=== PATIENT | female | born 1930 | race Caucasian/White ===

== ENCOUNTER 2018-04-01 13:57 | Emergency (ER) | payer OTHER ==
[2018-04-01 14:03] VITALS: BP 118/65; TEMP 97.9; BMI 23.5
--- NOTE | 2018-04-01 15:30 | ED.PDOC ---
General ED Provider: Dr. SAMIA MARTIN Chief Complaint: Extremity Pain/Injury Stated Complaint: C/O Left leg , knee pain. Diffiuclty walking. Pt states left knee has been hurting for a long time but has been worse for the last 6 months. Pt is new at [facility] and was sent out for evaluation of increased difficulty in walking and left anterior knee pain.Family states it seems that her condition has changed and worsened. No recent trauma. hx prev BL--TKA Time Seen by Physician: 15:10 Mode of Arrival: Wheelchair Information Source: Patient, Family Exam Limitations: No limitations Nursing and Triage Documentation Reviewed and Agree: Yes Does patient meet sepsis criteria?: No System Inflammatory Response Syndrome: Not Applicable Sepsis Protocol: For patient's 13 years and over: Temp is 96.8 and below OR 101 and greater Pulse >90 BPM Resp >20/minute Acutely Altered Mental Status Are patient's symptoms suggestive of a new infection, such as: -Pneumonia -Skin, Soft Tissue -Endocarditis -UTI -Bone, Joint Infection -Implantable Device -Acute Abdominal Infection -Wound Infection -Meningitis -Blood Stream Catheter Infection -Unknown Musculoskeletal Complaint Exam - Knee Pain Complaint/Exam Mechanism of Injury: Reports: No known trauma Onset/Duration: changed in last week Symptoms Are: Still present Onset of Pain: Reports: Prior to arrival Initial Severity: Moderate Current Severity: Mild Location: Reports: Diffuse Character: Reports: Dull, Aching Alleviating: Reports: Rest Aggravating: Reports: Movement Associated Signs and Symptoms: Denies: Swelling, Redness, Bruising, Fever, Weakness, Numbness, Tingling Able to Bear Weight: Yes Related History: Reports: Similar episode Septic Arthritis Risk Factors: Reports: None Gout Risk Factors: Reports: None Related Surgical History: Reports: Right Knee, Left Knee Knee Findings: Present: Tenderness Tenderness: Absent: Pre-patellar, Joint, Tibial Tuberosity Cliff Test Positive: No Mariela Test Positive: No Limited Range of Motion: Absent: Active, Passive, Flexion, Extension, Patellar apprehension Differential Diagnoses: Contusion, Patellofemoral Syndrome, Strain Review of Systems - Review Of Systems Constitutional: Reports: No symptoms Eyes: Reports: No symptoms Ears, Nose, Mouth, Throat: Reports: No symptoms Respiratory: Reports: No symptoms Cardiac: Reports: No symptoms GI: Reports: No symptoms : Reports: No symptoms Musculoskeletal: Reports: No symptoms, Joint pain Skin: Reports: No symptoms Neurological: Reports: No symptoms Endocrine: Reports: No symptoms Hematologic/Lymphatic: Reports: No symptoms All Other Systems: Reviewed and Negative Past Medical History - Past Medical History Previously Healthy: Yes Endocrine: Reports: None Cardiovascular: Reports: None, Hypertension Respiratory: Reports: None Hematological: Reports: None Gastrointestinal: Reports: None Genitourinary: Reports: None, Other (oxybutynin) Neuro/Psych: Reports: None, Anxiety, Dementia Musculoskeletal: Reports: None, Arthritis, Joint Pain Cancer: Reports: None Last Menstrual Period: none - Surgical History General Surgical History: Reports: None - Family History Family History: Reports: None - Social History Smoking Status: Never smoker Hx Substance Use: No Alcohol Screening: None Physical Exam - Physical Exam Appearance: Well-appearing, No pain distress, Well-nourished Eyes: SJ, EOMI, Conjunctiva clear ENT: Ears normal, Nose normal, Oropharynx normal Respiratory: Airway patent, Breath sounds clear, Breath sounds equal, Respirations nonlabored Cardiovascular: RRR, Pulses normal, No rub, No murmur GI/: Soft, Nontender, No masses, Bowel sounds normal, No Organomegaly Musculoskeletal: Normal strength, ROM intact (no localized joint restriction, no appreciable effusion ), No edema, No calf tenderness Skin: Warm, Dry, Normal color Neurological: Sensation intact, Motor intact, Reflexes intact, Cranial nerves intact, Alert, Oriented Psychiatric: Affect appropriate, Mood appropriate Interpretation - Radiology Interpretation Radiology Interpretation By: Radiologist Radiology Results: No acute changes Exam Interpreted: Other (pelvis and knee xrays) Critical Care Note - Critical Care Note Total Time (mins): 0 Course - Course Orders, Labs, Meds: Orders Category Date Time Status KNEE, LEFT 4 VIEWS Stat RADS 04/01/18 16:08 Completed KNEE, RIGHT 4 VIEWS Stat RADS 04/01/18 16:08 Completed PELVIS & LAURA HIPS Stat RADS 04/01/18 16:08 Completed Vital Signs: Temp Pulse Resp BP Pulse Ox 04/01/18 13:57 97.9 F 60 18 118/65 99 Departure - Departure Time of Disposition: 17:40 Disposition: HOME SELF-CARE Discharge Problem: Weakness, Leg pain, Degenerative arthritis, Dementia Instructions: Arthralgia (ED), Leg Pain (ED) Condition: Fair Pt referred to PMD for follow-up: Yes (1 week) IPMP verified?: No Allergies/Adverse Reactions: Allergies Iodinated Contrast- Oral and IV Dye [Iodinated Contrast Media - IV Dye] Adverse Reaction (Verified 07/27/13 19:03) Home Medications: Ambulatory Orders Fluticasone/Salmeterol [Advair 100-50 Diskus] 1 puff IH Q12H PRN 05/04/13 Metoprolol Succinate [Toprol Xl] 25 mg PO DAILY 05/04/13 Sertraline HCl [Zoloft] 100 mg PO DAILY 05/04/13 Lisinopril/Hydrochlorothiazide [Zestoretic 20-12.5 mg Tablet] 1 each PO DAILY Alprazolam 0.25 mg PO Q8HR PRN 04/01/18 Aspirin [Aspirin EC] 81 mg PO DAILY 04/01/18 Atorvastatin Calcium 40 mg PO BEDTIME 04/01/18 Cyanocobalamin (Vitamin B-12) [Cyanocobalamin Injection] 1,000 mcg IJ MONTHLY Donepezil HCl 5 mg PO DAILY 04/01/18 Oxybutynin Chloride [Ditropan Xl] 5 mg PO DAILY 04/01/18 Tramadol HCl 50 mg PO Q8HR PRN 04/01/18 Disposition Discussed With: Patient, Family Additional Information: Explained to family no radiographic finding of acute injury or abnormalities of the prev TKA
--- NOTE | 2018-04-01 16:59 | DI ---
EXAM: Right knee, four view HISTORY: Pain COMPARISON: None FINDINGS/IMPRESSION: There is right knee arthroplasty. No fracture, dislocation, or evidence for lo osening.
--- NOTE | 2018-04-01 17:00 | DI ---
EXAM: Left knee four views HISTORY: Pain FINDINGS: No comparison imaging. The patient has underwent previous knee arthroplasty. The prosthe tic units appear intact with no evidence of dislodgement or loosening. No acute fracture is identifi ed. There is no joint effusion seen. Bones are demineralized. IMPRESSION: No fracture or dislocation.
--- NOTE | 2018-04-01 17:03 | DI ---
EXAM: Pelvis and bilateral hips HISTORY: Pain COMPARISON: None TECHNIQUE: Single view pelvis and single frog-leg view right and left hip were performed FINDINGS: Bones appear demineralized. Sacroiliac joints intact. Sacral arcuate intact. Hip joints appear normal. No fracture or dislocation. Degenerative change in the spine. Surgical changes in th e pelvis. IMPRESSION: No fracture or dislocation.
== END 2018-04-01 18:04 | disposition home or self-care (01) ==
LOC: ED 13:57
DX: M79.605 Pain in left leg (principal); M25.562 Pain in left knee; R53.1 Weakness; F03.90 Unspecified dementia, unspecified severity, without behavioral disturbance, psychotic disturbance, mood disturbance, and anxiety; M19.90 Unspecified osteoarthritis, unspecified site
CPT/HCPCS: 99282

== ENCOUNTER 2018-05-23 15:20 | Inpatient (IN) ==
[2018-05-23] MEDS ORDERED: SODIUM CHLORIDE 1,000 ML IV STA (15:35)
--- NOTE | 2018-05-23 16:53 | CT ---
EXAM: CT of the chest without contrast History: Cough. Comparison: Chest radiograph 07/19/2013, CT abdomen pelvis 05/23/2018 Technique: Multiplanar CT images through the chest were obtained without the administration of IV co ntrast Findings: Heart size is upper limits of normal. Coronary calcifications. Trace anterior pericardia l effusion. No thoracic aortic aneurysm. No axillary adenopathy. There is subsegmental atelectasis within the lingula. No consolidated pneumonia. No pleural fluid and no pneumothorax. No lung barbara s or lung nodules. For details in the upper abdomen, please see dedicated CT abdomen pelvis done on the same day. No ac pacheco osseous abnormalities. Degenerative changes of the spine. A few subacute anterior right rib frac tures with callous formation. Impression: 1. Plate-like atelectasis within the lingula but no consolidated pneumonia. 2. Coronary artery disease
--- NOTE | 2018-05-23 17:00 | CT ---
EXAM: CT ABDOMEN AND PELVIS HISTORY: Abdominal pain, nausea and vomiting TECHNIQUE: CT abdomen and pelvis without intravenous contrast. Images were reconstructed using 3 mm section thickness. Reformations were prepared. COMPARISON: None FINDINGS: Diagnostic limitations exist without including contrast enhanced images. There is a 1.5 cm low atten uation lesion of the inferior right hepatic lobe which could represent a cyst although is indetermina te. Pancreas is within normal limits. No definite gallbladder is seen. Mild ectasia of the common b ile duct without gross evidence of choledocholithiasis. No definite pancreatic inflammation or mass. Adrenal glands are within normal limits. Kidneys and ureters are unremarkable. There is mild to m oderate atherosclerotic disease. Stomach appears grossly unremarkable. An appendix, if present is not seen. There may be circumferen tial wall thickening of the lower cecum. Moderate amount retained fecal material within the rectal v carolyn distending the rectum to about 6.6 cm. The lowermost rectum is nondistended and not adequately e valuated on this exam, regional mass or stricture not excluded. Bowel gas pattern is nonobstructive. Urinary bladder is unremarkable. No uterus is seen. There is no ascites. Postop changes of the ventral abdominal wall without herniation. Bones reveal generalized deminerali zation and moderately severe degenerative changes of the spine with scoliosis. No pneumoperitoneum i s seen. See also same day CT thorax report. IMPRESSION: 1. There may be circumferential wall thickening of the lower cecum. Neoplasia cannot be excluded. 2. Moderate amount retained fecal material within the rectal vault distending the rectum to about 6. 6 cm. Early fecal impaction of the rectum should be considered. The lowermost rectum is nondistended and not adequately evaluated on this exam, regional mass or stricture not excluded. Bowel gas patter n is nonobstructive.
--- NOTE | 2018-05-23 17:31 | ED.PDOC ---
General ED Provider: Dr. MIGUEL LAZARO Chief Complaint: Nausea/Vomiting Stated Complaint: shortness of breath nausea , vomiting Time Seen by Physician: 15:30 Mode of Arrival: Walk-In Information Source: EMT Exam Limitations: No limitations Primary Care Provider: ISABELL DAO Nursing and Triage Documentation Reviewed and Agree: Yes Does patient meet sepsis criteria?: No (seen with pt's nurse and jimi and family) System Inflammatory Response Syndrome: Not Applicable (refused oxygen ) Sepsis Protocol: For patient's 13 years and over: Temp is 96.8 and below OR 101 and greater Pulse >90 BPM Resp >20/minute Acutely Altered Mental Status Are patient's symptoms suggestive of a new infection, such as: -Pneumonia -Skin, Soft Tissue -Endocarditis -UTI -Bone, Joint Infection -Implantable Device -Acute Abdominal Infection -Wound Infection -Meningitis -Blood Stream Catheter Infection -Unknown Respiratory Complaint Exam - Shortness of Air Complaint/Exam Symptoms Are: Still present Timing: Intermittent Initial Severity: Moderate Current Severity: Mild Character: Reports: Dyspnea at rest Aggravating: Reports: Recumbent position Alleviating: Reports: None Associated Signs and Symptoms: Reports: Cough. Denies: Wheezing, Chest pain with cough, Chest pain, Fever, Chills, Diaphoresis, Nasal congestion, Dizziness , Calf pain, Calf swelling, Edema, Rapid breathing, Labored breathing, Decreased intake History of Healthcare-Acquired Pneumonia: No Pulmonary Embolism Risk Factors: Reports: Bedrest Tuberculosis Risk Factors: Reports: None Home Oxygen Use: No Recent Stress Test: No Recent Echo/LV Function: No Respiratory Distress: None Stridor Present: No Tracheal Deviation: No Subcutaneous Emphysema: No Accessory Muscle Use: No Retractions: Not Present Diminished Breath Sounds: No Prolonged Expiratory Phase: No Unable to Speak Full Sentences: No Fatigue: No Leg Swelling: No Lesvia's Sign Present: No Grunting Respirations: No Kussmaul Respirations: No Differential Diagnoses: Pneumonia Review of Systems - Review Of Systems Constitutional: Reports: Malaise, Weakness Eyes: Reports: No symptoms Ears, Nose, Mouth, Throat: Reports: No symptoms Respiratory: Reports: Cough, Short of air Cardiac: Reports: No symptoms GI: Reports: Abdominal pain, Nausea, Vomiting : Reports: No symptoms Musculoskeletal: Reports: No symptoms Skin: Reports: No symptoms Neurological: Reports: No symptoms Endocrine: Reports: No symptoms Hematologic/Lymphatic: Reports: No symptoms All Other Systems: Reviewed and Negative Past Medical History - Past Medical History Previously Healthy: Yes Endocrine: Reports: None Cardiovascular: Reports: None, Hypertension Respiratory: Reports: None Hematological: Reports: None Gastrointestinal: Reports: None Genitourinary: Reports: None, Other (oxybutynin) Neuro/Psych: Reports: None, Anxiety, Dementia Musculoskeletal: Reports: None, Arthritis, Joint Pain Cancer: Reports: None Last Menstrual Period: N/A - Surgical History General Surgical History: Reports: None - Family History Family History: Reports: None - Social History Smoking Status: Never smoker Hx Substance Use: No Alcohol Screening: None - Immunizations Tetanus Shot up to Date: Yes Physical Exam - Physical Exam Appearance: Ill-appearing Ill-appearing: Moderate Pain Distress: Mild Eyes: SJ, EOMI, Conjunctiva clear ENT: Dry mucosa Respiratory: Airway patent, Breath sounds clear, Breath sounds equal, Respirations nonlabored Cardiovascular: RRR, Pulses normal, No rub, No murmur GI/: Soft, Nontender, No masses, Bowel sounds normal, No Organomegaly Musculoskeletal: Normal strength, ROM intact, No edema, No calf tenderness Skin: Warm, Dry, Normal color Neurological: Sensation intact, Motor intact, Reflexes intact, Cranial nerves intact, Alert, Oriented Psychiatric: Affect appropriate, Mood appropriate Interpretation - Radiology Interpretation Radiology Interpretation By: Radiologist Radiology Results: Positive (colonic neoplasm) Physician Notification - Case Discussed Physician Notified: pmd Time of Notification: 17:33 (admitt ) Admit To: Inpatient (telm) Critical Care Note - Critical Care Note Total Time (mins): 0 Course - Course Hematology/Chemistry: 05/23/18 16:06 05/23/18 16:06 Orders, Labs, Meds: Lab Review 05/23/18 05/23/18 05/23/18 15:34 16:06 16:06 WBC 5.21 RBC 4.42 Hgb 12.8 Hct 39.0 MCV 88.2 MCH 29.0 MCHC 32.8 RDW Coeff of Yisel 13.8 Plt Count 212 Immature Gran % (Auto) 0.4 Neut % (Auto) 70.7 Lymph % (Auto) 16.7 Vinton % (Auto) 8.3 Eos % (Auto) 3.3 Baso % (Auto) 0.6 Immature Gran # (Auto) 0.0 Neut # (Auto) 3.7 Lymph # (Auto) 0.9 Vinton # (Auto) 0.4 Eos # (Auto) 0.2 Baso # (Auto) 0.0 Puncture Site Rbrach O2 Saturation 98.0 ABG pH 7.601 H* ABG pCO2 26.6 L ABG pO2 88.0 ABG HCO3 26.2 H ABG Total CO2 27 ABG Base Excess 5 H FiO2 % 21.0 Sodium 136 Potassium 3.7 Chloride 97 L Carbon Dioxide 30 Anion Gap 12.7 BUN 23 H Creatinine 1.09 Estimated GFR (MDRD) 47.00 BUN/Creatinine Ratio 21.10 Glucose 107 Lactic Acid Calcium 9.7 Total Bilirubin 0.9 AST 29 ALT 20 Alkaline Phosphatase 121 Total Creatine Kinase 99 Troponin I 0.1040 Total Protein 6.6 Albumin 3.4 Globulin 3.2 Albumin/Globulin Ratio 1.06 Procalcitonin 05/23/18 05/23/18 16:06 16:06 WBC RBC Hgb Hct MCV MCH MCHC RDW Coeff of Yisel Plt Count Immature Gran % (Auto) Neut % (Auto) Lymph % (Auto) [place] % (Auto) Eos % (Auto) Baso % (Auto) Immature Gran # (Auto) Neut # (Auto) Lymph # (Auto) Vinton # (Auto) Eos # (Auto) Baso # (Auto) Puncture Site O2 Saturation ABG pH ABG pCO2 ABG pO2 ABG HCO3 ABG Total CO2 ABG Base Excess FiO2 % Sodium Potassium Chloride Carbon Dioxide Anion Gap BUN Creatinine Estimated GFR (MDRD) BUN/Creatinine Ratio Glucose Lactic Acid 6.2 Calcium Total Bilirubin AST ALT Alkaline Phosphatase Total Creatine Kinase Troponin I Total Protein Albumin Globulin Albumin/Globulin Ratio Procalcitonin < 0.05 Orders Category Date Time Status ABG DRAW REQUEST Stat CARDIO 05/23/18 15:34 Completed EKG-(ED ONLY) Stat CARDIO 05/23/18 15:34 Completed ED IV/MEDIPORT/POWERPORT .ONCE EMERGENCY 05/23/18 15:35 Active ABG Stat LAB 05/23/18 15:34 Completed BLOOD CULTURE Stat LAB 05/23/18 16:06 Received CBC W/ AUTO DIFF Stat LAB 05/23/18 16:06 Completed COMPREHENSIVE METABOLIC PANEL Stat LAB 05/23/18 16:06 Completed CREATINE KINASE Stat LAB 05/23/18 16:06 Completed LACTIC ACID Stat LAB 05/23/18 16:06 Completed PROCALCITONIN Stat LAB 05/23/18 16:06 Completed TROPONIN I Stat LAB 05/23/18 16:06 Completed URINALYSIS C & S IF INDICATED Stat LAB 05/23/18 15:34 Uncollected 0.9 % Sodium Chloride [Saline Flush] MEDS 05/23/18 15:35 Active 1 syr IVF PRN PRN Sodium Chloride 0.9% [Sodium Chloride] 1,000 ml MEDS 05/23/18 15:35 Active IV 125 mls/hr CT ABDOMEN/PELVIS WO CONTRAST Stat RADS 05/23/18 15:[address] CHEST W/O CONTRAST Stat RADS 05/23/18 15:35 Completed Medications Generic Name Dose Route Start Last Admin Trade Name Freq PRN Reason Stop Dose Admin Sodium Chloride 1,000 mls @ 125 mls/hr 05/23/18 15:35 05/23/18 15:30 Sodium Chloride IV 05/23/18 23:34 125 mls/hr .Q8H STA Administration Sodium Chloride 1 syr 05/23/18 15:35 Saline Flush IVF PRN PRN To flush IV Vital Signs: Temp Pulse Resp BP Pulse Ox 05/23/18 15:28 97.1 F L 58 L 18 115/48 L 93 L Departure - Departure Time of Disposition: 17:33 (family stated pt is DNR OMD NITIFIED ) Disposition: ADMITTED INPATIENT Discharge Problem: Nausea, Vomiting, Shortness of breath Condition: Good Pt referred to PMD for follow-up: Yes IPMP verified?: No Additional Instructions: Please call your Family Physician as soon as possible to schedule a follow-up appointment. Allergies/Adverse Reactions: Allergies Iodinated Contrast- Oral and IV Dye [Iodinated Contrast Media - IV Dye] Adverse Reaction (Verified 07/27/13 19:03) Home Medications: Ambulatory Orders Fluticasone/Salmeterol [Advair 100-50 Diskus] 1 puff IH Q12H PRN 05/04/13 Metoprolol Succinate [Toprol Xl] 25 mg PO DAILY 05/04/13 Sertraline HCl [Zoloft] 100 mg PO DAILY 05/04/13 Lisinopril/Hydrochlorothiazide [Zestoretic 20-12.5 mg Tablet] 1 each PO DAILY Alprazolam 0.25 mg PO Q8HR PRN 04/01/18 Aspirin [Aspirin EC] 81 mg PO DAILY 04/01/18 Atorvastatin Calcium 40 mg PO BEDTIME 04/01/18 Cyanocobalamin (Vitamin B-12) [Cyanocobalamin Injection] 1,000 mcg IJ MONTHLY Donepezil HCl 5 mg PO DAILY 04/01/18 Oxybutynin Chloride [Ditropan Xl] 5 mg PO DAILY 04/01/18 Tramadol HCl 50 mg PO Q8HR PRN 04/01/18 Disposition Discussed With: Patient
[2018-05-23] MEDS: SODIUM CHLORIDE 1,000 ML IV SCH (18:00)
[2018-05-23] MEDS ORDERED: NON-FORMULARY MEDICATION (Atorvastatin Calcium [Atorvastatin Calcium] 40 MG) PO SCH (21:00)
[2018-05-24 01:53] VITALS: BMI 25.4
[2018-05-24] MEDS ORDERED: DONEPEZIL HCL 5 MG PO SCH (09:00)
[2018-05-24] MEDS ORDERED: ZESTORETIC 20-12.5 MG TAB PO SCH (09:00)
[2018-05-24] MEDS: ROCEPHIN 1 GM in SODIUM CHLORIDE 50 ML IV SCH (09:22)
[2018-05-24] MEDS: SODIUM CHLORIDE 1,000 ML IV SCH (09:23)
[2018-05-24] MEDS: ARICEPT PO SCH (09:34)
[2018-05-24] MEDS: ASPIRIN EC PO SCH (09:35)
[2018-05-24] MEDS ORDERED: ASPIRIN CHEWABLE PO STA (09:40)
[2018-05-24] MEDS: ZESTORETIC 20-12.5 MG TAB PO ONE ×2 (09:47→09:57)
[2018-05-24] MEDS: ASPIRIN EC PO ONE ×2 (09:48→09:56)
[2018-05-24] MEDS: ARICEPT PO ONE ×2 (09:49→09:56)
[2018-05-24] MEDS ORDERED: XANAX PO PRN (10:13)
[2018-05-24] MEDS: ZOLOFT PO SCH ×2 (20:59→21:01)
[2018-05-24] MEDS ORDERED: ZOLOFT PO SCH (21:00)
[2018-05-24] MEDS ORDERED: LIPITOR PO SCH (21:00)
[2018-05-25] MEDS: SODIUM CHLORIDE 1,000 ML IV SCH ×2 (00:29→17:01)
[2018-05-25] MEDS ORDERED: ARICEPT PO ONE (09:42)
[2018-05-25] MEDS ORDERED: ASPIRIN EC PO ONE (09:45)
[2018-05-25] MEDS: ASPIRIN EC PO SCH (10:05)
[2018-05-25] MEDS: ROCEPHIN 1 GM in SODIUM CHLORIDE 50 ML IV SCH (10:05)
[2018-05-25] MEDS: ARICEPT PO SCH (10:05)
[2018-05-25] MEDS: ZOFRAN 4 MG/2 ML IVP PRN (17:00)
[2018-05-25] MEDS: ZOLOFT PO SCH (21:01)
[2018-05-26] MEDS: SODIUM CHLORIDE 1,000 ML IV SCH (06:51)
--- NOTE | 2018-05-26 06:51 | PN ---
DATE OF SERVICE: 05/23/18 - ADMIT NOTE SUBJECTIVE: 88-year-old white female was sent from the detention with complaint of being short of breath. The patient was seen and examined in the emergency room where she was noted to be confused, sleepy. All of her labs like hemoglobin was 12.0 with hematocrit of 37, WBC 5,000, normal differential, creatinine 0.9, BUN 22, potassium 3.6. EKG showed sinus rhythm, no acute changes. Glucose 87. Estimated GFR was 53 cc/min. MEDICATIONS: The patient's medications were: Advair Toprol Zoloft Zestoretic Aspirin Aricept Ditropan Tramadol Vitamin D PAST MEDICAL HISTORY: Dementia Depression Hypertension Dyslipidemia PHYSICAL EXAMINATION: V/S: Temperature 98, pulse 60, respiratory rate 14, BP 110/60. Pulse ox 98% on 2L. BMI 25. HEENT: Head normocephalic, atraumatic. Eyes: Extraocular muscles are intact. Pupils are equal, round and reactive to light and accommodation. Ears: No lesions. Nose appeared normal. Throat: No exudate or erythema. NECK: Supple. No JVD, no carotid bruit. No lymphadenopathy or thyromegaly. LUNGS: Clear to auscultation. Percussion note normal. Chest symmetrical. HEART: S1, S2, no S3. No murmurs. No cyanosis or clubbing. No ascites. Pulses: Dorsalis pedis and posterior tibial pulses +1 to +2 both sides. ABDOMEN: Soft. Nontender. Bowel sounds active. No CVA tenderness. No mass felt. EXTREMITIES: No edema. Full range of motion of all extremities, equal. NEUROLOGIC: No focal neurological deficit. Cranial nerves II through XII are grossly intact. No headache, no double vision or headache. SKIN: Not dry. Intact. Turgor - normal. LYMPHATIC: No palpable lymph nodes/no lymphedema. MUSCULOSKELETAL: Normal joints with no swelling. Muscle tone is normal. The was present in the emergency room. The sons were called. The patient was DNR and again the DNR status was confirmed. ASSESSMENT: 1. DROWSINESS 2. DECREASE IN APPETITE 3. DEHYDRATION 4. WORSENING OF DEMENTIA PLAN: 1. Continue all the medication for now. 2. IV fluids. 3. Telemetry. 4. Neurochecks. 5. The patient is DNR. TIME SPENT: More than 30 minutes. Plan and coordination of the patient's care discussed in the presence of nurse. ANIL
--- NOTE | 2018-05-26 07:08 | PN ---
DATE OF SERVICE: 05/24/18 SUBJECTIVE: 82-year-old white female hospitalized with shortness of breath. The patient also has change in mental status with drowsiness and sleepiness for the past couple of weeks. was present in the room. He wants DNR. The patient's labs are acceptable. REVIEW OF SYSTEMS: CONSTITUTIONAL: No night sweats. No fatigue, malaise, lethargy. No fever or chills. HEENT: Eyes: No visual changes. No eye pain. No eye discharge. ENT: No runny nose. No epistaxis. No sinus pain. No sore throat. No odynophagia. No congestion. RESPIRATORY: No cough, no congestion. No hemoptysis. No shortness of breath. CARDIOVASCULAR: No angina symptoms. No CHF symptoms. No atypical chest pain for CAD. No palpitations. No orthopnea. GASTROINTESTINAL: Appetite is poor. No abdominal pain. No nausea or vomiting. No diarrhea or constipation. No hematemesis. No hematochezia. GENITOURINARY: No urgency. No frequency. No dysuria. No hematuria. No obstructive symptoms. No discharge. No pain. No significant abnormal bleeding. MUSCULOSKELETAL: No musculoskeletal pain; no joint swelling. NEUROLOGICAL: Sleepy. No headache. No neck pain. No syncope. No seizures. No dizziness. PSYCHIATRIC: Not anxious. No depression. No suicidal thoughts. No homicidal thoughts. SKIN: No rash. No lesions. No wounds. ENDOCRINE: No unexplained weight loss. No weight gain. HEMATOLOGIC/LYMPHATIC: No anemia. No purpura. No petechiae. No prolonged or excessive bleeding. No palpable lymph nodes. PHYSICAL EXAMINATION: V/S: Temperature 98.3, pulse 54, respiratory rate 14, BP 90/42, pulse ox 97%. HEENT: Head normocephalic, atraumatic. Eyes: Extraocular muscles are intact. Pupils are equal, round and reactive to light and accommodation. Ears: No lesions. Nose appeared normal. Throat: No exudate or erythema. NECK: Supple. No JVD, no carotid bruit. No lymphadenopathy or thyromegaly. LUNGS: Clear to auscultation. Percussion note normal. Chest symmetrical. HEART: S1, S2, no S3. No murmurs. No cyanosis or clubbing. No ascites. Pulses: Dorsalis pedis and posterior tibial pulses +1 to +2 both sides. ABDOMEN: Soft. Nontender. Bowel sounds active. No CVA tenderness. No mass felt. EXTREMITIES: No edema. Full range of motion of all extremities, equal. NEUROLOGIC: No focal deficit. Cranial nerves II through XII are grossly intact. No headache, no double vision or headache. SKIN: Not dry. Intact. Turgor - normal. LYMPHATIC: No palpable lymph nodes/no lymphedema. MUSCULOSKELETAL: Normal joints with no swelling. Muscle tone is normal. PLAN: 1. D/C Zoloft, Atorvastatin, Zestoretic and Oxybutynin CONDITION: Stable PROGNOSIS: Guarded. TIME SPENT: More than 30 minutes. Plan and coordination of the patient's care discussed in the presence of nurse. ANIL
[2018-05-26] MEDS ORDERED: DULCOLAX RC STA (08:50)
[2018-05-26] MEDS: ARICEPT PO SCH ×2 (10:30→10:58)
[2018-05-26] MEDS: ASPIRIN EC PO SCH ×2 (10:30→10:59)
--- NOTE | 2018-05-26 10:51 | RS.SLPCNOT ---
Speech Case Note Date of Note: 05/26/18 Title: Speech Consult Note: MARINE SERVICES TECHNICIAN discussed patient's case with nursing staff. Reports of nausea, food refusal, with poor appetite and limited verbalizations were reported. The MARINE SERVICES TECHNICIAN recommended a dietary consult to address nutritional needs. The MARINE SERVICES TECHNICIAN entered the patient's room and pt was asleep sitting upright in the bed. The pt took one sip of thin liquids via straw. No overt s/s of aspiration were observed. The MARINE SERVICES TECHNICIAN did observed the patient swallow a large amount of air, followed with four burps. When the patient burped, she had frequent gagging behaviors and a gurlgy sound approximately at the UES. The MARINE SERVICES TECHNICIAN suspects severe GERD and may be causing some difficulty with her PO intake. However d/t mentation, the patient does not express her signs/symptoms appropriately. No skilled ST warranted at this time. MARINE SERVICES TECHNICIAN recommends pacing meals, small sips of liquids via open cup, and maintain upright sitting posture frequently throughout the day.
[2018-05-26] MEDS: ROCEPHIN 1 GM in SODIUM CHLORIDE 50 ML IV SCH (10:58)
--- NOTE | 2018-05-26 11:10 | PCM.PROG ---
Attending Provider: ATTENDING PROVIDER: Dr. ISABELL DAO DATE OF SERVICE: 05/26/18 SUBJECTIVE: This 88 year old WHITE/ F was hospitalized 05/23/18 with shortness of breath. The patient's other problems are sleepiness, drowsiness. She has been taken off Zoloft and Xanax. The patient is constipated. She is refusing to eat. REVIEW OF SYSTEMS: CONSTITUTIONAL: No night sweats. No fatigue, malaise, lethargy. No fever or chills. HEENT: Eyes: No visual changes. No eye pain. No eye discharge. ENT: No runny nose. No epistaxis. No sinus pain. No odynophagia. No congestion. RESPIRATORY: No cough, no congestion. No hemoptysis. No shortness of breath. CARDIOVASCULAR: No angina symptoms. No CHF symptoms. No atypical chest pain for CAD. No palpitations. No orthopnea.. GASTROINTESTINAL: Constipation. Poor appetite. No abdominal pain. No nausea or vomiting. No diarrhea. No hematemesis. No hematochezia. GENITOURINARY: No urgency. No frequency. No dysuria. No hematuria. No obstructive symptoms. No discharge. No pain. No significant abnormal bleeding. MUSCULOSKELETAL: No musculoskeletal pain; no joint swelling. NEUROLOGICAL: Confusion; sleepy. No headache. No neck pain. No syncope. No seizures. No dizziness. PSYCHIATRIC: Sleepiness, drowsiness. No suicidal thoughts. No homicidal thoughts. SKIN: No rash. No lesions. No wounds. ENDOCRINE: No unexplained weight loss. No weight gain. HEMATOLOGIC/LYMPHATIC: No anemia. No purpura. No petechiae. No prolonged or excessive bleeding. No palpable lymph nodes. PHYSICAL EXAMINATION: GENERAL: The patient is sleepy, lying in bed in no distress. VITAL SIGNS: Temperature 98 F, Pulse 59, Respiratory Rate 18, BP 120/60, Pulse Ox 99% HEENT: Head normocephalic, atraumatic. Eyes: Extraocular muscles are intact. Pupils are equal, round and reactive to light and accommodation. Ears: No lesions. Nose appeared normal. Throat: No exudate or erythema. NECK: Supple. No JVD, no carotid bruit. No lymphadenopathy or thyromegaly. LUNGS: Clear to auscultation. Percussion note normal. Chest symmetrical. HEART: S1, S2, no S3. No murmurs. No cyanosis or clubbing. No ascites. Pulses: Dorsalis pedis and posterior tibial pulses +1 to +2 both sides. ABDOMEN: Soft. Non-tender. Bowel sounds active. No CVA tenderness. No mass felt. EXTREMITIES: No edema. Full range of motion of all extremities, equal. NEUROLOGIC: No focal deficit. Cranial nerves II through XII are grossly intact. No headache, no double vision or headache. SKIN: Warm and dry. Intact. Turgor-normal. LYMPHATIC: No palpable lymph nodes/no lymphedema. MUSCULOSKELETAL: Normal joints with no swelling. Muscle tone is normal. LAB REVIEW: 05/25/18 06:30 05/25/18 06:30 05/25/18 07:55: Urine Color Yellow, Urine Clarity Clear, Urine pH 7.0, Ur Specific [place] 1.015, Urine Protein Negative, Urine Glucose (UA) Negative, Urine Ketones 1+, Urine Blood Negative, Urine Nitrite Negative, Urine Bilirubin 2+, Urine Urobilinogen 4.0, Ur Leukocyte Esterase Negative ASSESSMENT: Overall medical status is stable except for refusal to eat, sleepy, has constipation and deterioration of mental status. PLAN: 1. CT scan of head without contrast. 2. T4, TSH. 3. Ducolax suppository. Plan and coordination of the patient's care discussed in the presence of Dietitian and nurse. CONDITION: Stable SCRIBED BY: TOI SARGENT Mainframe Consultant scribed while in presence of service performed by Dr. ISABELL DAO on 05/26/18 ([id number])
--- NOTE | 2018-05-26 11:44 | CT ---
EXAM: CT of the head without contrast History: Confusion, altered mental status Comparison: Head CT 07/27/2013 Technique: Multiplanar CT images through the head were obtained without the administration of IV cont rast Findings: The visualized paranasal sinuses and mastoid air cells are clear in general. No acute calv arial abnormalities. Intracranially there is age appropriate atrophy. No dominant mass or midline shift. No hydrocephalo us. No acute intracranial hemorrhage or abnormal extraaxial fluid collections. No acute intracrania l hemorrhage or abnormal extraaxial fluid collections. Impression: No acute intracranial process. Stable chronic age-related changes
--- NOTE | 2018-05-26 14:13 | HP ---
DATE OF SERVICE: 05/23/18 REASON FOR HOSPITALIZATION: Shortness of breath HISTORY OF PRESENT ILLNESS: This 88-year-old white female was brought to the emergency room from the alf where she has for the last two weeks deteriorating according to the . She is not able to eat properly and sleeping most of the time. Also short of breath at times. Overall, condition is deteriorating according to the . She was seen and examined in the ER by ER attending and was hospitalized with diagnosis of shortness of breath and possibility of dehydration. The patient is DNR. Unable to give any history. PAST MEDICAL/SURGICAL HISTORY: The patient is unable to give history. REVIEW OF SYSTEMS:(UNABLE TO GET THE PATIENT IS DROWSY AND SLEEPY) CONSTITUTIONAL: No night sweats. No fatigue, malaise, lethargy. No fever or chills. HEENT: Eyes: No visual changes. No eye pain. No eye discharge. ENT: No runny nose. No epistaxis. No sinus pain. No sore throat. No odynophagia. No ear pain. No congestion. RESPIRATORY: No cough, no congestion. No hemoptysis. No shortness of breath. CARDIOVASCULAR: No angina symptoms. No CHF symptoms. No atypical chest pain for CAD. No palpitations. No PND. No orthopnea. GASTROINTESTINAL: Appetite is reduced. No abdominal pain. No nausea or vomiting. No diarrhea or constipation. No hematemesis. No hematochezia. GENITOURINARY: No urgency. No frequency. No dysuria. No hematuria. No obstructive symptoms. No discharge. No pain. No significant abnormal bleeding. MUSCULOSKELETAL: No musculoskeletal pain. No joint swelling. No arthritis. NEUROLOGICAL: The patient is unable to get up, usually gets up with help. No headache. No neck pain. No syncope. No seizures. No dizziness. PSYCHIATRIC: Not anxious. No depression. No suicidal thoughts. No homicidal thoughts. SKIN: No rash. No lesions. No wounds. ENDOCRINE: No unexplained weight loss. No weight gain. HEMATOLOGIC/LYMPHATIC: No anemia. No purpura. No petechiae. No prolonged or excessive bleeding. No palpable lymph nodes. PERSONAL/FAMILY/SOCIAL HISTORY: The patient is nonsmoker, no alcohol abuse. She is and lives at the alf. She has dementa. MEDICATIONS: Xanax 0.25 q.8 Aspirin one a day Aricept 5 mg p.o. daily Metoprolol 25 mg p.o. daily Zoloft 100 mg at bedtime Lisinopril/Hydrochlorthiazide 20/12.5 twice a day Atorvastatin 40 mg p.o. at bedtime Vitamin B12 1 cc every one monthly Oxybutynin 5 mg p.o. at bedtime Tramadol 50 mg p.o. q.8 ALLERGIES: IODINATED CONTRAST PHYSICAL EXAMINATION: GENERAL: The patient is confused, sleepy. VITAL SIGNS: Temperature 98, pulse 70, respiratory rate 15, BP systolic 110, diastolic 60, pulse ox 95% on room air, looks somewhat pale. Skin is dry. HEENT: Face is symmetrical. Head normocephalic, atraumatic. Eyes: Extraocular muscles are intact. Pupils are equal, round and reactive to light and accommodation. Ears: No lesions. Nose appeared normal. Throat: No exudate or erythema. NECK: Supple. No JVD, no carotid bruit. No lymphadenopathy or thyromegaly. LUNGS: Decreased breath sounds but clear to auscultation. Percussion note normal. Chest symmetrical. HEART: S1, S2, no S3. No murmurs. No cyanosis or clubbing. No ascites. Pulses: Dorsalis pedis and posterior tibial pulses +1 to +2 bilaterally. ABDOMEN: Soft. Nontender. Bowel sounds active. No CVA tenderness. No mass felt. EXTREMITIES: No edema. Full range of motion of all extremities, equal. NEUROLOGIC: Moving all extremities. No focal deficit. Cranial nerves II through XII are grossly intact. No headache, no double vision or headache. SKIN: Not dry. Intact. Turgor - normal. LYMPHATIC: No palpable lymph nodes/no lymphedema. MUSCULOSKELETAL: Normal joints with no swelling. Muscle tone is normal. UA showed 1+ ketone, 2+ bilirubin. CK-troponin negative. Procalcitonin 0.05 less than that. Lactic acid 6.2 which is normal. Hemoglobin 12.8, hematocrit 39. WBC 5,000, normal differential. CT scan of the abdomen and pelvis showed possibility of thickening of the lower cecum. Neoplasm cannot be excluded. Moderate amount of retained fecal material noted. ABG p02 88, pc02 26, pH 7.60 on room air with 98% saturation. HC03 was 26, creatinine 1, BUN 23, glucose 107 , liver profile normal. Chest x-ray showed plate-like atelectasis, coronary artery disease. ASSESSMENT: 1. CONFUSION 2. DEHYDRATION 3. DEMENTIA 4. SHORTNESS OF BREATH PLAN: 1. Give IV fluids 2. IV Rocephin with possibility of UTI with change in her condition 3. Watch for fluid overload 4. Telemetry 5. Watch for blood pressure to rise up with IV fluids; if it doesn't then may have to discontinue antihypertensive medications. 6. The family was present in the emergency room on admission and DNR was discussed again and it was decided and reconfirmed that the patient is DNR. TIME SPENT: More than 70 minutes. ANIL
--- NOTE | 2018-05-26 14:39 | PN ---
DATE OF SERVICE: 05/25/18 SUBJECTIVE: The patient seems to be doing the same but she is awake. She is uncooperative. BP systolic is 99. All the hypertensive medications have been held. REVIEW OF SYSTEMS: CONSTITUTIONAL: No night sweats. No fatigue, malaise, lethargy. No fever or chills. HEENT: Eyes: No visual changes. No eye pain. No eye discharge. ENT: No runny nose. No epistaxis. No sinus pain. No sore throat. No odynophagia. No congestion. RESPIRATORY: No cough, no congestion. No hemoptysis. No shortness of breath. CARDIOVASCULAR: No angina symptoms. No CHF symptoms. No atypical chest pain for CAD. No palpitations. No orthopnea. GASTROINTESTINAL: No abdominal pain. No nausea or vomiting. No diarrhea or constipation. No hematemesis. No hematochezia. GENITOURINARY: No urgency. No frequency. No dysuria. No hematuria. No obstructive symptoms. No discharge. No pain. No significant abnormal bleeding. MUSCULOSKELETAL: No musculoskeletal pain; no joint swelling. NEUROLOGICAL: Confused but not in distress. No headache. No neck pain. No syncope. No seizures. No dizziness. PSYCHIATRIC: Not anxious. No depression. No suicidal thoughts. No homicidal thoughts. SKIN: No rash. No lesions. No wounds. ENDOCRINE: No unexplained weight loss. No weight gain. HEMATOLOGIC/LYMPHATIC: No anemia. No purpura. No petechiae. No prolonged or excessive bleeding. No palpable lymph nodes. PHYSICAL EXAMINATION: HEENT: Head normocephalic, atraumatic. Eyes: Extraocular muscles are intact. Pupils are equal, round and reactive to light and accommodation. Ears: No lesions. Nose appeared normal. Throat: No exudate or erythema. NECK: Supple. No JVD, no carotid bruit. No lymphadenopathy or thyromegaly. LUNGS: Clear to auscultation. Percussion note normal. Chest symmetrical. HEART: S1, S2, no S3. No murmurs. No cyanosis or clubbing. No ascites. Pulses: Dorsalis pedis and posterior tibial pulses +1 to +2 both sides. ABDOMEN: Soft. Nontender. Bowel sounds active. No CVA tenderness. No mass felt. EXTREMITIES: No edema. Full range of motion of all extremities, equal. NEUROLOGIC: No focal deficit. Cranial nerves II through XII are grossly intact. No headache, no double vision or headache. SKIN: Not dry. Intact. Turgor - normal. LYMPHATIC: No palpable lymph nodes/no lymphedema. MUSCULOSKELETAL: Normal joints with no swelling. Muscle tone is normal. ASSESSMENT: 1. DEMENTIA 2. WORSENING HYPOTENSION - OFF ALL ANTIHYPERTENSIVE MEDICATIONS PLAN: Continue to monitor the patient's vitals. Electrolytes are normal. IV fluids infusing. CONDITION: STABLE TIME SPENT: More than 30 minutes. Plan and coordination of the patient's care discussed in the presence of nurse. ANIL
[2018-05-26] MEDS ORDERED: DULCOLAX RC ONE (16:34)
[2018-05-26] MEDS: ZOLOFT PO SCH (22:05)
[2018-05-27] MEDS: SODIUM CHLORIDE 1,000 ML IV SCH (01:16)
[2018-05-27] MEDS: ROCEPHIN 1 GM in SODIUM CHLORIDE 50 ML IV SCH (09:53)
[2018-05-27] MEDS: POTASSIUM CHLORIDE IV SCH ×2 (09:54→21:44)
[2018-05-27] MEDS: SODIUM CHLORIDE 0.9% IV SCH ×2 (09:54→21:44)
[2018-05-27] MEDS: KCL 20 MEQ IV SCH ×2 (09:54→21:44)
[2018-05-27] MEDS: ASPIRIN EC PO SCH (10:01)
[2018-05-27] MEDS: ARICEPT PO SCH (10:01)
--- NOTE | 2018-05-27 13:17 | PCM.PROG ---
Attending Provider: ATTENDING PROVIDER: Dr. ISABELL DAO DATE OF SERVICE: 05/27/18 SUBJECTIVE: This 88 year old WHITE/ F was hospitalized 05/23/18 with shortness of breath, dehydration, and possible fecal impaction. The patient's bowels moved all night with Ducolax suppository. She is awake and alert; the first time awake answering questions, some inappropriate. REVIEW OF SYSTEMS: CONSTITUTIONAL: No night sweats. No fatigue, malaise, lethargy. No fever or chills. HEENT: Eyes: No visual changes. No eye pain. No eye discharge. ENT: No runny nose. No epistaxis. No sinus pain. No odynophagia. No congestion. RESPIRATORY: No cough, no congestion. No hemoptysis. No shortness of breath. CARDIOVASCULAR: No angina symptoms. No CHF symptoms. No atypical chest pain for CAD. No palpitations. No orthopnea.. GASTROINTESTINAL: No abdominal pain. No nausea or vomiting. No diarrhea or constipation. No hematemesis. No hematochezia. GENITOURINARY: No urgency. No frequency. No dysuria. No hematuria. No obstructive symptoms. No discharge. No pain. No significant abnormal bleeding. MUSCULOSKELETAL: No musculoskeletal pain; no joint swelling. NEUROLOGICAL: More awake, alert with confusion. No headache. No neck pain. No syncope. No seizures. No dizziness. PSYCHIATRIC: Not anxious. No depression. No suicidal thoughts. No homicidal thoughts. SKIN: No rash. No lesions. No wounds. ENDOCRINE: No unexplained weight loss. No weight gain. HEMATOLOGIC/LYMPHATIC: No anemia. No purpura. No petechiae. No prolonged or excessive bleeding. No palpable lymph nodes. PHYSICAL EXAMINATION: GENERAL: The patient is awake, alert, confused lying in bed in no distress. VITAL SIGNS: Temperature 98.1 F, Pulse 87, Respiratory Rate 18, BP 124/63, Pulse Ox 97% HEENT: Head normocephalic, atraumatic. Eyes: Extraocular muscles are intact. Pupils are equal, round and reactive to light and accommodation. Ears: No lesions. Nose appeared normal. Throat: No exudate or erythema. NECK: Supple. No JVD, no carotid bruit. No lymphadenopathy or thyromegaly. LUNGS: Clear to auscultation. Percussion note normal. Chest symmetrical. HEART: S1, S2, no S3. No murmurs. No cyanosis or clubbing. No ascites. Pulses: Dorsalis pedis and posterior tibial pulses +1 to +2 both sides. ABDOMEN: Soft. Non-tender. Bowel sounds active. No CVA tenderness. No mass felt. EXTREMITIES: No edema. Full range of motion of all extremities, equal. NEUROLOGIC: No focal deficit. Cranial nerves II through XII are grossly intact. No headache, no double vision or headache. SKIN: Warm and dry. Intact. Turgor-normal. LYMPHATIC: No palpable lymph nodes/no lymphedema. MUSCULOSKELETAL: Normal joints with no swelling. Muscle tone is normal. LAB REVIEW: 05/27/18 04:15 05/27/18 04:15 05/27/18 04:15: Sodium 136, Potassium 3.4 L, Chloride 104, Carbon Dioxide 23, Anion Gap 12.4, BUN 12, Creatinine 0.74, Estimated GFR (MDRD) 74.00, BUN/ Creatinine Ratio 16.21, Glucose 76 L, Calcium 8.5, Total Bilirubin 0.9, AST 23, ALT 13, Alkaline Phosphatase 85, Total Protein 5.2 L, Albumin 2.7 L, Globulin 2.5, Albumin/Globulin Ratio 1.08 05/27/18 04:15: WBC 9.02, RBC 3.93 L, Hgb 11.5 L, Hct 34.7 L, MCV 88.3, MCH 29.3 , MCHC 33.1, RDW Coeff of [place]isel 13.9, Plt Count 173, Immature Gran % (Auto) 0.4, Neut % (Auto) 79.6, Lymph % (Auto) 11.2, [place] % (Auto) 6.8, Eos % (Auto) 1.6, Baso % (Auto) 0.4, Immature Gran # (Auto) 0.0, Neut # (Auto) 7.2 H, Lymph # ( Auto) 1.0, [place] # (Auto) 0.6, Eos # (Auto) 0.1, Baso # (Auto) 0.0 05/26/18 09:30: TSH 1.401, Free T4 1.12 ASSESSMENT: 1. DEMENTIA 2. FECAL IMPACTION RESOLVED 3. DEHYDRATION SEEMS TO HAVE RESOLVED WITH GOOD SKIN TURGOR 4. HYPOKALEMIA, MILD PLAN: 1. Encouraged to eat. 2. Potassium Chloride through IV fluids. 3. CT scan of brain, negative. Plan and coordination of the patient's care discussed in the presence of Media Marketing Director and nurse. CONDITION: Stable SCRIBED BY: TOI SARGENT Glass Bead Maker scribed while in presence of service performed by Dr. ISABELL DAO on 05/27/18 ([id number])
[2018-05-27] MEDS: ZOLOFT PO SCH (20:08)
[2018-05-27] MEDS ORDERED: POTASSIUM CHLORIDE 10 MEQ VIAL IV ONE (21:37)
[2018-05-28] MEDS: ASPIRIN EC PO SCH (08:38)
[2018-05-28] MEDS: ROCEPHIN 1 GM in SODIUM CHLORIDE 50 ML IV SCH (08:38)
[2018-05-28] MEDS: ARICEPT PO SCH (08:38)
[2018-05-28] MEDS: KCL 20 MEQ IV SCH (10:30)
[2018-05-28] MEDS: POTASSIUM CHLORIDE IV SCH (10:30)
[2018-05-28] MEDS: SODIUM CHLORIDE 0.9% IV SCH (10:30)
[2018-05-28] MEDS: ZOLOFT PO SCH (20:55)
[2018-05-29] MEDS ORDERED: POTASSIUM CHLORIDE 10 MEQ VIAL IV ONE (01:09)
[2018-05-29] MEDS: POTASSIUM CHLORIDE IV SCH (01:18)
[2018-05-29] MEDS: KCL 20 MEQ IV SCH (01:18)
[2018-05-29] MEDS: SODIUM CHLORIDE 0.9% IV SCH (01:18)
[2018-05-29 06:18] VITALS: BP 136/67; TEMP 98.1
[2018-05-29] MEDS: ZOFRAN 4 MG/2 ML IVP PRN (06:21)
[2018-05-29] MEDS: ROCEPHIN 1 GM in SODIUM CHLORIDE 50 ML IV SCH (08:55)
[2018-05-29] MEDS: ASPIRIN EC PO SCH (08:58)
[2018-05-29] MEDS: ARICEPT PO SCH (08:58)
--- NOTE | 2018-05-29 10:45 | CM.DICTOOL ---
ADMISSION: 05/23/18 18:09 DISCHARGE: MAY 29, 2018 DATE OF SERVICE: 05/29/18 FINAL DIAGNOSIS DEHYDRATION NAUSEA/VOMITING FECAL IMPACTION, RESOLVED DEMENTIA HYPERTENSION MILD HYPOKALEMIA, IMPROVED COLON CANCER DYSLIPIDEMIA HYSTERECTOMY CHOLECYSTECTOMY COLON RESECTION BILATERAL TKR LAST VITALS Temp Pulse Resp BP Pulse Ox 98.1 F 88 18 136/67 97 05/29/18 06:00 05/29/18 06:00 05/29/18 06:00 05/29/18 06:00 05/29/18 06:00 TAKE THESE MEDICATIONS Alprazolam (Xanax) 0.25 mg PO Q8HR PRN PRN Reason: Anxiety Donepezil HCl (Aricept) 5 mg PO DAILY [facility] Last Admin: Dose: Not Given Sertraline HCl (Zoloft) 75 mg PO BEDTIME [facility] Last Admin: 05/28/18 20:55 Dose: Not Given Megace 40 mg PO BID Last Admin: Vitamin B-12 1000 mcg IM Monthly Last Admin: ALLERGIES Iodinated Contrast- Oral and IV Dye [Iodinated Contrast Media - IV Dye] Adverse Reaction (Verified 07/27/13 19:03) DISCONTINUED MEDICATIONS Oxybutynin Chloride (Ditropan) Zestoretic 20-12.5 BID Tramadol HCL Metoprolol Succinate Fluticasone/Salmeterol Atorvastatin ASA NEW PRESCRIPTIONS: Megace 40 mg BID (january crush) SMOKING: Not Applicable DISEASE SPECIFIC EDUCATION: Patient has dementia. Not Applicable LAB REVIEW: 05/29/18 04:50 05/29/18 04:50 05/29/18 04:50: Sodium 139, Potassium 4.4, Chloride 108 H, Carbon Dioxide 21 L, Anion Gap 14.4, BUN 11, Creatinine 0.71, Estimated GFR (MDRD) 78.00, BUN/ Creatinine Ratio 15.49, Glucose 63 L, Calcium 8.9, Total Bilirubin 0.8, AST 24, ALT 13, Alkaline Phosphatase 93, Total Protein 5.6 L, Albumin 2.9 L, Globulin 2.7, Albumin/Globulin Ratio 1.07 05/29/18 04:50: WBC 6.02, RBC 4.27, Hgb 12.5, Hct 38.7 D, MCV 90.6, MCH 29.3, MCHC 32.3, RDW Coeff of [place] 14.2, Plt Count 170, Immature Gran % (Auto) 1.0, Neut % (Auto) 61.4, Lymph % (Auto) 25.1, [place] % (Auto) 6.6, Eos % (Auto) 5.1, Baso % (Auto) 0.8, Immature Gran # (Auto) 0.1, Neut # (Auto) 3.7, Lymph # (Auto ) 1.5, [place] # (Auto) 0.4, Eos # (Auto) 0.3, Baso # (Auto) 0.1 PLAN: Discharge to [facility] Diet: Pureed Encourage Liquids Frequently May crush oral medications Boost Plus BID CBC, CMP in one week, then monthly Vital Signs Daily for one week, then weekly Dietitian to see Up to chair for meals; remain upright for at least 30 minutes after eating Turn every 2 hours Incontinent care prn Decubitus Precautions Code Status: DNR Michelle Herron APRN/Dr. Angeles to see on senior living rounds in 7-10 days. Mrs. Willams is alert to person. She mumbles at times, but does not directly answer questions. She is dependent on nursing staff for bed mobility, transfers , feeding and personal care. She is incontinent of bladder and bowel. Meal intakes have been poor; but she will take sips of water or juice at times. Intake of medications is poor even when medications are crushed and put in applesauce. Slight excoriation is noted to buttocks, coccyx but no open areas or decubitus ulcers are noted. Pepe Angeles MD
--- NOTE | 2018-05-29 11:32 | PCM.PROG ---
Attending Provider: ATTENDING PROVIDER: Dr. ISABELL DAO DATE OF SERVICE: 05/29/18 SUBJECTIVE: This 88 year old WHITE/ F was hospitalized 05/23/18 with nonspecific complaints and the patient was mildly dehydrated. Her main problem is condition is worsening with worsening of dementia. She is awake, is talking and answering questions. She draink some fluid. Cardiovascular status is stable. Electrolytes are stable. REVIEW OF SYSTEMS: CONSTITUTIONAL: No night sweats. No fatigue, malaise, lethargy. No fever or chills. HEENT: Eyes: No visual changes. No eye pain. No eye discharge. ENT: No runny nose. No epistaxis. No sinus pain. No odynophagia. No congestion. RESPIRATORY: No cough, no congestion. No hemoptysis. No shortness of breath. CARDIOVASCULAR: No angina symptoms. No CHF symptoms. No atypical chest pain for CAD. No palpitations. No orthopnea.. GASTROINTESTINAL: No abdominal pain. No nausea or vomiting. No diarrhea or constipation. No hematemesis. No hematochezia. GENITOURINARY: No urgency. No frequency. No dysuria. No hematuria. No obstructive symptoms. No discharge. No pain. No significant abnormal bleeding. MUSCULOSKELETAL: No musculoskeletal pain; no joint swelling. NEUROLOGICAL: Awake, alert. No headache. No neck pain. No syncope. No seizures. No dizziness. PSYCHIATRIC: Not anxious. No depression. No suicidal thoughts. No homicidal thoughts. SKIN: No rash. No lesions. No wounds. ENDOCRINE: No unexplained weight loss. No weight gain. HEMATOLOGIC/LYMPHATIC: No anemia. No purpura. No petechiae. No prolonged or excessive bleeding. No palpable lymph nodes. PHYSICAL EXAMINATION: GENERAL: The patient is awake, alert lying in bed in no distress. VITAL SIGNS: Temperature 98.1 F, Pulse 88, Respiratory Rate 18, BP 136/67, Pulse Ox 97% HEENT: Head normocephalic, atraumatic. Eyes: Extraocular muscles are intact. Pupils are equal, round and reactive to light and accommodation. Ears: No lesions. Nose appeared normal. Throat: No exudate or erythema. NECK: Supple. No JVD, no carotid bruit. No lymphadenopathy or thyromegaly. LUNGS: Clear to auscultation. Percussion note normal. Chest symmetrical. HEART: S1, S2, no S3. No murmurs. No cyanosis or clubbing. No ascites. Pulses: Dorsalis pedis and posterior tibial pulses +1 to +2 both sides. ABDOMEN: Soft. Non-tender. Bowel sounds active. No CVA tenderness. No mass felt. EXTREMITIES: No edema. Full range of motion of all extremities, equal. NEUROLOGIC: Mental status is not normal. No focal deficit. Cranial nerves II through XII are grossly intact. No headache, no double vision or headache. SKIN: Warm and dry. Intact. Turgor-normal. LYMPHATIC: No palpable lymph nodes/no lymphedema. MUSCULOSKELETAL: Normal joints with no swelling. Muscle tone is normal. LAB REVIEW: 05/29/18 04:50 05/29/18 04:50 05/29/18 04:50: Sodium 139, Potassium 4.4, Chloride 108 H, Carbon Dioxide 21 L, Anion Gap 14.4, BUN 11, Creatinine 0.71, Estimated GFR (MDRD) 78.00, BUN/ Creatinine Ratio 15.49, Glucose 63 L, Calcium 8.9, Total Bilirubin 0.8, AST 24, ALT 13, Alkaline Phosphatase 93, Total Protein 5.6 L, Albumin 2.9 L, Globulin 2.7, Albumin/Globulin Ratio 1.07 05/29/18 04:50: WBC 6.02, RBC 4.27, Hgb 12.5, Hct 38.7 D, MCV 90.6, MCH 29.3, MCHC 32.3, RDW Coeff of [place]isel 14.2, Plt Count 170, Immature Gran % (Auto) 1.0, Neut % (Auto) 61.4, Lymph % (Auto) 25.1, [place] % (Auto) 6.6, Eos % (Auto) 5.1, Baso % (Auto) 0.8, Immature Gran # (Auto) 0.1, Neut # (Auto) 3.7, Lymph # (Auto ) 1.5, [place] # (Auto) 0.4, Eos # (Auto) 0.3, Baso # (Auto) 0.1 ASSESSMENT: Dementia seems to be worsening with refusal to eat or drink. PLAN: 1. Encourage her to eat a pureed diet 2. Appetite stimulant 3. Continue Zoloft and Xanax as needed 4. Megace 5. D/C Rocephin Plan and coordination of the patient's care discussed in the presence of Director Of Cardiology and nurse. CONDITION: STABLE PROGNOSIS: GUARDED SCRIBED BY: TOI SARGENT, Design Cell Engineer scribed while in presence of service performed by Dr. ISABELL DAO on 05/29/18 ([id number])
--- NOTE | 2018-05-29 11:47 | DS ---
DATE OF SERVICE: 05/29/18 FINAL DIAGNOSIS: 1. DEHYDRATION 2. NAUSEA/VOMITING 3. FECAL IMPACTION, RESOLVED 4. DEMENTIA 5. HYPERTENSION 6. MILD HYPOKALEMIA, IMPROVED 7. COLON CANCER 8. DYSLIPIDEMIA 9. HYSTERECTOMY 10. CHOLECYSTECTOMY 11. COLON RESECTION 12. BILATERAL TKR DISCHARGE INSTRUCTIONS: 1. Discharge to [facility] 2. Followup appointment - will see on snf rounds 3. May crush oral medications 4. CBC, CMP in one week then monthly 5. Vital signs daily for one week, then weekly 6. [employer] to see 7. Up to chair for meals, remain upright for at least 30 minutes after eating 8. Turn every 2 hours 9. Incontinent care p.r.n. 10. Decubitus precautions MEDICATIONS AT DISCHARGE: Xanax 0.25 mg p.o. q.8h p.r.n. Aricept 5 mg p.o. daily STONE Zoloft 75 mg p.o. bedtime STONE Megace 40 mg p.o. b.i.d. Vitamin B12 1000 mcg IM monthly DISCONTINUED MEDICATIONS: Oxybutynin Chloride (Ditropan) Zestoretic 20-12.5 b.i.d. Tramadol HCL Metoprolol Succinate Fluticasone/Salmeterol Atorvastatin ASA NEW PRESCRIPTIONS: Megace 40 mg b.i.d. (january crush) DIET INSTRUCTIONS: Pureed Encourage liquids frequently Boost Plus b.i.d. ACTIVITY: Turn every 2 hours. Up to chair for meals, remain upright for at least 30 minutes after eating. SMOKING: N/A DISEASE SPECIFIC EDUCATION: Patient has dementia. N/A HOSPITAL COURSE: The patient is hospitalized with worsening dementia and overall medical status. The patient has declined appetite refusing to eat or take medications. She was treated for possible UTI. Rocephin was used she was taken off all medications except for Zoloft. Xanax will be given p.r.n. She was taken off Toprol and Zestoretic. Blood pressure was on lower side of normal. She was advised to have pureed diet. Appetite stimulate will be added. She is not able to go through GI workup like EGD or possible colonoscopy. The patient's family wants DNR and comfort measures. VITAL SIGNS: Temperature 98.1, pulse 88, respiratory rate 18, BP 136/667, pulse ox 97%. CONDITION: Stable PROGNOSIS: Guarded TIME SPENT: More than 60 minutes. MTDD
--- NOTE | 2018-05-29 11:49 | PN ---
CODING FOR BILLING 05/23/18 LEVEL 5 05/24/18 INTERMEDIATE 05/25/18 INTERMEDIATE 05/26/18 INTERMEDIATE 05/27/18 INTERMEDIATE 05/28/18 INTERMEDIATE 05/29/18 DISCHARGE MTDD
--- NOTE | 2018-05-30 08:27 | PN ---
DATE OF SERVICE: 05/28/18 SUBJECTIVE: The patient is alert, stubborn, refusing to eat. Oral intake is very poor. She is on IV fluids. CT scan was unremarkable. REVIEW OF SYSTEMS: CONSTITUTIONAL: No night sweats. No fatigue, malaise, lethargy. No fever or chills. HEENT: Eyes: No visual changes. No eye pain. No eye discharge. ENT: No runny nose. No epistaxis. No sinus pain. No sore throat. No odynophagia. No congestion. RESPIRATORY: No cough, no congestion. No hemoptysis. No shortness of breath. CARDIOVASCULAR: No angina symptoms. No CHF symptoms. No atypical chest pain for CAD. No palpitations. No orthopnea. GASTROINTESTINAL: Refuses to eat. No abdominal pain. No nausea or vomiting. No diarrhea or constipation. No hematemesis. No hematochezia. GENITOURINARY: No urgency. No frequency. No dysuria. No hematuria. No obstructive symptoms. No discharge. No pain. No significant abnormal bleeding. MUSCULOSKELETAL: No musculoskeletal pain; no joint swelling. NEUROLOGICAL: No headache. No neck pain. No syncope. No seizures. No dizziness. PSYCHIATRIC: Not anxious. No depression. No suicidal thoughts. No homicidal thoughts. SKIN: No rash. No lesions. No wounds. ENDOCRINE: No unexplained weight loss. No weight gain. HEMATOLOGIC/LYMPHATIC: No anemia. No purpura. No petechiae. No prolonged or excessive bleeding. No palpable lymph nodes. PHYSICAL EXAMINATION: HEENT: Head normocephalic, atraumatic. Eyes: Extraocular muscles are intact. Pupils are equal, round and reactive to light and accommodation. Ears: No lesions. Nose appeared normal. Throat: No exudate or erythema. NECK: Supple. No JVD, no carotid bruit. No lymphadenopathy or thyromegaly. LUNGS: Clear to auscultation. Percussion note normal. Chest symmetrical. HEART: S1, S2, no S3. No murmurs. No cyanosis or clubbing. No ascites. Pulses: Dorsalis pedis and posterior tibial pulses +1 to +2 both sides. ABDOMEN: Soft. Nontender. Bowel sounds active. No CVA tenderness. No mass felt. EXTREMITIES: No edema. Full range of motion of all extremities, equal. NEUROLOGIC: No focal deficit. Cranial nerves II through XII are grossly intact. No headache, no double vision or headache. SKIN: Not dry. Intact. Turgor - normal. LYMPHATIC: No palpable lymph nodes/no lymphedema. MUSCULOSKELETAL: Normal joints with no swelling. Muscle tone is normal. The patient is refusing to take any medications. Dementia has advanced. She is hypoproteinemic, malnourished with anemia with hemoglobin of 10.3, hematocrit 31. Prognosis is poor considering her status of mind with dementia. TIME SPENT: More than 30 minutes. Plan and coordination of the patient's care discussed in the presence of nurse. ANIL
== END 2018-05-29 12:55 | DRG 690 ==
LOC: ED 15:20 → MEDSURG A 18:09
PROVIDERS: ADMIT Internal Medicine; ATTEND Internal Medicine
DX: N39.0 Urinary tract infection, site not specified (principal); R06.02 Shortness of breath; R10.9 Unspecified abdominal pain; R41.0 Disorientation, unspecified; R63.0 Anorexia; R53.1 Weakness; E86.0 Dehydration; E87.6 Hypokalemia; E78.5 Hyperlipidemia, unspecified; F03.90 Unspecified dementia, unspecified severity, without behavioral disturbance, psychotic disturbance, mood disturbance, and anxiety; K56.41 Fecal impaction; I10 Essential (primary) hypertension
CPT/HCPCS: 36415; 80053; 81001; 82550; 82803; 83605; 84145; 84439; 84443; 84484; 85025; 87040; 87081; 93005; 93010; 97802; 99284